=== PATIENT | male | born 2000 | race Caucasian/White ===

== ENCOUNTER 2023-09-19 20:25 | Emergency (ER) | payer BC ==
[~2023-09-19] VITALS: Ht 177.8 cm; Wt 68.3 kg
[2023-09-19] MEDS ORDERED: Home Cephalexin 500 MG #2 CAP/PACK PO ONE (21:30)
[2023-09-19] MEDS ORDERED: Cephalexin 250 MG CAP PO ONE (21:30)
[2023-09-19] MEDS ORDERED: CEPHALEXIN500 M1 PO (21:40)
[2023-09-19] MEDS ORDERED: Ketorolac 30 MG/ML VIAL IM ONE (21:45)
[2023-09-19 22:23] VITALS: BP 128/69
== END 2023-09-19 22:06 | disposition home or self-care (01) ==
LOC: ED 20:25
DX: S81.012A Laceration without foreign body, left knee, initial encounter (principal); S20.312A Abrasion of left front wall of thorax, initial encounter; S30.811A Abrasion of abdominal wall, initial encounter; Z88.0 Allergy status to penicillin; V28.49XA Other motorcycle driver injured in noncollision transport accident in traffic accident, initial encounter; Y93.55 Activity, bike riding; Y92.410 Unspecified street and highway as the place of occurrence of the external cause
CPT/HCPCS: 90715; J1885